=== PATIENT | female | born 1970 ===

== ENCOUNTER 2022-05-18 22:25 | Outpatient (REF) | payer BC, SELFPAY ==
[2022-05-18 22:42] LABS: HCT 38.7 % (36.0-46.0); HGB 12.3 g/dL (11.2-15.7); MCH 29.9 pg (27.0-33.0); MCHC 31.8 % (32.0-36.0); MCV 94 fL (80-95); Platelet Count 329 10^3/uL (130-400); RBC 4.12 10^6/uL (3.93-5.22); RDW 12.8 % (11.7-14.6); WBC 5.96 10^3/uL (4.4-10.8)
[2022-05-18 22:47] LABS: Anion Gap 7.8 mmol/L (3-11); BUN 12 mg/dL (7-18); CO2 30.2 mmol/L (21.0-32.0); CREATININE 0.7 mg/dL (0.55-1.02); Calcium 9.2 mg/dL (8.5-10.1); Chloride 105 mmol/L (98-107); Glucose 83 mg/dL (74-106); Potassium 4.8 mmol/L (3.5-5.1); Sodium 143 mmol/L (136-145)
== END 2022-05-18 22:26 | disposition home or self-care (01) ==
LOC: NCHCN 22:25
PROVIDERS: Visit Provider Family Medicine
DX: R00.2 Palpitations (principal); F43.10 Post-traumatic stress disorder, unspecified
CPT/HCPCS: 80048; 85027

== ENCOUNTER 2023-06-27 19:07 | Outpatient (REF) | payer BC, SELFPAY ==
[2023-06-27 21:14] LABS: ALT 23 U/L (14-59); AST 26 U/L (15-37); Albumin 4.2 g/dL (3.4-5.0); Alkaline Phosphatase 63 U/L (46-116); Anion Gap 9.4 mmol/L (3-11); BUN 14 mg/dL (7-18); Bilirubin, Total 0.3 mg/dL (0.2-1.0); CO2 27.6 mmol/L (21.0-32.0); CREATININE 0.8 mg/dL (0.55-1.02); Calcium 9.8 mg/dL (8.5-10.1); Chloride 102 mmol/L (98-107); Estimated GFR 89.15 (mL/min/1.73m2); Glucose 99 mg/dL (74-106); Potassium 3.8 mmol/L (3.5-5.1); Sodium 139 mmol/L (136-145); TSH (W/Ref FT4) 1.05 uIU/mL (0.36-3.74); Total Protein 8.1 g/dL (6.4-8.2)
== END 2023-06-27 19:08 | disposition home or self-care (01) ==
LOC: NCHCN 19:07
PROVIDERS: Visit Provider Family Medicine
DX: R00.2 Palpitations (principal)
CPT/HCPCS: 80053; 84443